=== PATIENT | male | born 1960 | race Caucasian/White ===

== ENCOUNTER 2017-05-22 10:49 | Inpatient (IN) | payer BC ==
[~2017-05-22] VITALS: Ht 190.5 cm; Wt 107.1 kg
[2017-07-12] VITALS (15 sets, daily range): BP systolic 85–129; BP diastolic 50–76; PULSE 64–89; TEMP 96.9–98.7
[2017-07-12 06:20] LABS: BASO % 0.5 % (0.0-2.0); EOS # 0.1 (0.0-0.7); EOS % 1.5 % (0-4.0); GRAN # 3.8 (1.4-6.5); HEMATOCRIT 43.1 % (42.0-52.0); HEMOGLOBIN 14.4 g/dl (13.5-18.0); LYMPH # 1.6 (1.2-3.4); LYMPH % 26.7 % (20.0-51.0); MEAN CELL VOLUME 85 fl (80.0-100.0); MEAN CORPUSCULAR HEMOGLOBIN 28 pg (27.0-31.0); MEAN CORPUSCULAR HGB CONC 33 g/dl (33.0-37.0); MEAN PLATELET VOLUME 10.2 fl (7.4-10.4); MONO # 0.4 (0.1-0.6); MONO % 7.1 % (1.7-9.3); PLATELET COUNT 261 K/mm3 (130-400); RED BLOOD COUNT 5.09 M/mm3 (4.20-5.60); REDCELL DISTRIBUTION WIDTH-CV 13.6 % (11.5-14.5)
[2017-07-12 06:32] LABS: CALCIUM 9.4 mg/dL (8.4-10.2); CREATININE, serum 1.03 mg/dL (0.66-1.25); POTASSIUM 3.9 mmol/L (3.4-5.0)
[2017-07-12] MEDS ORDERED: MULTIPLE VITAMI1 CAP PO (06:36)
[2017-07-12 14:29] LABS: HEMATOCRIT 30.9 % (42.0-52.0); HEMOGLOBIN 10.2 g/dl (13.5-18.0)
[2017-07-13] VITALS (7 sets, daily range): BP systolic 99–112; BP diastolic 49–77; PULSE 84–102; TEMP 98.3–99.7
[2017-07-13 06:13] LABS: BASO % 0.2 % (0.0-2.0); EOS # 0.1 (0.0-0.7); EOS % 0.8 % (0-4.0); GRAN # 3.9 (1.4-6.5); GRAN % 65.8 % (42.2-75.2); LYMPH # 1.4 (1.2-3.4); LYMPH % 22.8 % (20.0-51.0); MEAN CELL VOLUME 88 fl (80.0-100.0); MEAN CORPUSCULAR HGB CONC 32 g/dl (33.0-37.0); MEAN PLATELET VOLUME 10.4 fl (7.4-10.4); MONO # 0.6 (0.1-0.6); MONO % 10.1 % (1.7-9.3); PLATELET COUNT 200 K/mm3 (130-400); RED BLOOD COUNT 3.16 M/mm3 (4.20-5.60); REDCELL DISTRIBUTION WIDTH-CV 13.9 % (11.5-14.5)
[2017-07-13 06:14] LABS: HEMATOCRIT 27.8 % (42.0-52.0); MEAN CORPUSCULAR HEMOGLOBIN 28 pg (27.0-31.0)
[2017-07-13 06:31] LABS: CALCIUM 7.7 mg/dL (8.4-10.2); CREATININE, serum 1.09 mg/dL (0.66-1.25); POTASSIUM 4.2 mmol/L (3.4-5.0)
[2017-07-14 04:03] VITALS: BP 130/70; PULSE 93; TEMP 98.4
[2017-07-14 07:49] VITALS: BP 108/67; PULSE 95; TEMP 98.1
== END 2017-07-14 14:04 | disposition home or self-care (01) | DRG 708 ==
LOC: INPTSU 07-12 05:33 → SURG 07-12 07:30
PROVIDERS: Registered Nurse; Urology
PROC: 0VT00ZZ Resection of Prostate, Open Approach (ICD-10-PCS; principal; 2017-07-12 07:30)
DX: C61 Malignant neoplasm of prostate (principal); Z87.891 Personal history of nicotine dependence
CPT/HCPCS: A9284; J0690; J2250; J2270; J2405; J2704; J2795; J3010; J3480; J7040; J7120